=== PATIENT | female | born 1990 | race Asian ===

== ENCOUNTER 2017-01-28 08:53 | Emergency (ER) | payer OTHER ==
[~2017-01-28] VITALS: Ht 149.9 cm; Wt 40.8 kg
[2017-01-28 09:05] VITALS: TEMP 99
[2017-01-28 10:02] LABS: PLATELET COUNT 218 K/uL (152-353)
[2017-01-28 10:20] LABS: POTASSIUM 4.1 mmol/L (3.6-5.2); SODIUM 135 mmol/L (136-145)
[2017-01-28 11:30] VITALS: BP 99/59
== END 2017-01-28 11:34 | disposition home or self-care (01) ==
LOC: ED 08:53
DX: J18.9 Pneumonia, unspecified organism (principal); B96.81 Helicobacter pylori [H. pylori] as the cause of diseases classified elsewhere
CPT/HCPCS: 36415; 80053; 82150; 83690; 85027; 86318; 96365; 99284; J0696